=== PATIENT | male | born 1960 | race Caucasian/White ===

== ENCOUNTER 2016-07-12 13:33 | Emergency (ER) | payer OTHER ==
[~2016-07-12 13:33] MED LIST: ALKA-SELTZER125 MG PO; BACTRIM DS TABL1 TA1 PO; BACTRIM DS TABL1 TA2 PO; IBUPROFEN800 MG PO; METHADONE; METHADONE PO; NO MEDICATIONS; ROBITUSSIN COU118 M6 PO; RYBIX ODT50 MG PO; TRAMADOL HCL50 M1 PO; TYLENOL #3 PO; ZITHROMAX PO
== END 2016-07-12 17:20 | disposition home or self-care (01) ==
LOC: CED 13:33
DX: L02.414 Cutaneous abscess of left upper limb (principal)
CPT/HCPCS: 10060; 99283

== ENCOUNTER 2016-07-15 11:32 | Emergency (ER) | payer OTHER | END 2016-07-15 14:10 | disposition home or self-care (01) | LOC: CED 11:32 → CFTX 11:32 | DX: Z48.00 Encounter for change or removal of nonsurgical wound dressing (principal); F41.9 Anxiety disorder, unspecified; F32.9 Major depressive disorder, single episode, unspecified; R03.0 Elevated blood-pressure reading, without diagnosis of hypertension | CPT/HCPCS: 99282 ==